=== PATIENT | male | born 1955 | race Caucasian/White ===

== ENCOUNTER 2016-12-05 12:27 | Day surgery (SDC) | payer OTHER ==
[~2016-12-05] VITALS: Ht 182.9 cm; Wt 131.5 kg
[~2016-12-05 12:27] MED LIST: ANDROGEL1.25 GM TD; ATIVAN1 MG PO; BUSPAR15 MG PO; CLARITIN-D 21 TABLET PO; CYMBALTA60 MG PO; DURAGESIC12 MCG TD; FLONASE ALLERG9.9 ML BOTH NARES; GLUCOTROL5 MG PO; LIPITOR40 MG PO; LO-DOSE ASPIRIN81 M1 PO; LOSARTAN-HCTZ1 EAC1 PO; LYRICA100 MG PO; METFORMIN HCL1000 M1 PO; MOBIC7.5 MG PO; PERCOCET 5/31 TABLET PO; PROTONIX40 MG PO; REMERON30 M2 PO; TRAZODONE HCL50 MG PO; VENTOLIN HFA18 GM IH; VERAPAMIL HCL240 MG PO; ZANAFLEX4 M1 PO; ZOLOFT20 MG/ML PO; ZOLOFT50 MG PO
[2016-12-05] MEDS ORDERED: FISH OIL 1,0001 EAC7 PO (12:57)
[2016-12-05 13:11] LABS: POINT-OF-CARE METER ID UU14174212
== END 2016-12-05 14:50 | disposition home or self-care (01) ==
LOC: PAIN 12:27 → SDC 13:15 → PAIN 13:15
PROVIDERS: Anesthesiology Pain Medicine
DX: M47.812 Spondylosis without myelopathy or radiculopathy, cervical region (principal); M54.2 Cervicalgia; G89.29 Other chronic pain; M48.02 Spinal stenosis, cervical region; M48.06 Spinal stenosis, lumbar region; M47.816 Spondylosis without myelopathy or radiculopathy, lumbar region; I10 Essential (primary) hypertension; E11.42 Type 2 diabetes mellitus with diabetic polyneuropathy; E11.3299 Type 2 diabetes mellitus with mild nonproliferative diabetic retinopathy without macular edema, unspecified eye; E78.1 Pure hyperglyceridemia; J45.909 Unspecified asthma, uncomplicated; I25.10 Atherosclerotic heart disease of native coronary artery without angina pectoris; F41.8 Other specified anxiety disorders; K21.0 Gastro-esophageal reflux disease with esophagitis; Z79.82 Long term (current) use of aspirin; Z79.84 Long term (current) use of oral hypoglycemic drugs; Z79.891 Long term (current) use of opiate analgesic
CPT/HCPCS: 82948; J1030; J2250; J3010; S0020

== ENCOUNTER 2016-12-12 12:02 | Day surgery (SDC) | payer OTHER ==
[~2016-12-12] VITALS: Ht 180.3 cm; Wt 132.9 kg
[~2016-12-12 12:02] MED LIST changes: +FISH OIL 1,0001 EAC7 PO
[2016-12-12 12:48] LABS: POINT-OF-CARE METER ID UU14174212
== END 2016-12-12 14:21 | disposition home or self-care (01) ==
LOC: PAIN 12:02 → SDC 12:30 → PAIN 14:21
PROVIDERS: Anesthesiology Pain Medicine
DX: M47.812 Spondylosis without myelopathy or radiculopathy, cervical region (principal); M54.2 Cervicalgia; G89.29 Other chronic pain; M48.02 Spinal stenosis, cervical region; M48.06 Spinal stenosis, lumbar region; M47.816 Spondylosis without myelopathy or radiculopathy, lumbar region; I25.10 Atherosclerotic heart disease of native coronary artery without angina pectoris; E11.3299 Type 2 diabetes mellitus with mild nonproliferative diabetic retinopathy without macular edema, unspecified eye; E11.40 Type 2 diabetes mellitus with diabetic neuropathy, unspecified; J45.909 Unspecified asthma, uncomplicated; I10 Essential (primary) hypertension; F41.8 Other specified anxiety disorders; E78.5 Hyperlipidemia, unspecified; E66.01 Morbid (severe) obesity due to excess calories; Z68.41 Body mass index [BMI] 40.0-44.9, adult; Z79.82 Long term (current) use of aspirin; Z79.84 Long term (current) use of oral hypoglycemic drugs; Z79.891 Long term (current) use of opiate analgesic
CPT/HCPCS: 82948; J1030; J2250; J3010; S0020

== ENCOUNTER 2017-04-24 03:31 | Emergency (ER) | payer BC ==
[~2017-04-24] VITALS: Ht 182.9 cm; Wt 129.7 kg
[2017-04-24 04:29] LABS: CHLORIDE 94 mEq/L (99-109); POTASSIUM 4.6 mEq/L (3.7-5.4); SODIUM 131 mEq/L (136-147)
[2017-04-24 04:31] LABS: GLUCOSE 333 mg/dL (70-99)
[2017-04-24 04:35] LABS: CREATININE 1.1 mg/dL (0.6-1.3); GFR ESTIMATE (CALCULATED) > 59 mL/min/ (58.99-99999)
[2017-04-24 04:36] LABS: UREA NITROGEN (BUN) 10 mg/dL (9-23)
[2017-04-24 04:42] LABS: HEMATOCRIT 39.3 % (38.0-50.0); HEMOGLOBIN 13.7 G/DL (12.5-16.6); MCH 31.9 PG (29.0-34.0); MCHC 34.9 G/DL (30.0-36.0); MCV 91.6 FL (86-99); RBC DIS.WIDTH-CV 12.2 % (11.8-14.6); RBC DIS.WIDTH-SD 40.9 % (39-53); RED BLOOD COUNT 4.29 M/uL (4.00-5.50); WHITE BLOOD COUNT 10.4 K/uL (4.1-10.2)
[2017-04-24 04:47] LABS: PLATELET COUNT 433 K/uL (156-360)
[2017-04-24] MEDS ORDERED: LEVAQUIN750 MG PO (06:57)
[2017-04-24] MEDS ORDERED: PREDNISONE50 MG PO (06:59)
[2017-04-24 07:13] VITALS: BP 129/97
== END 2017-04-24 07:14 | disposition home or self-care (01) ==
LOC: EME 03:31
DX: J18.9 Pneumonia, unspecified organism (principal); E11.65 Type 2 diabetes mellitus with hyperglycemia; R06.00 Dyspnea, unspecified; Z16.30 Resistance to unspecified antimicrobial drugs; Z79.84 Long term (current) use of oral hypoglycemic drugs; E78.5 Hyperlipidemia, unspecified; F41.9 Anxiety disorder, unspecified; G89.29 Other chronic pain
CPT/HCPCS: 71046; 71275; 80048; 85027; 85379; 93005; 94640; 99281; 99284; J7030; J7512

== ENCOUNTER 2017-05-25 09:34 | Day surgery (SDC) | payer BC ==
[~2017-05-25] VITALS: Ht 180.3 cm; Wt 127.0 kg
[~2017-05-25 09:34] MED LIST changes: -ANDROGEL1.25 GM TD; +ANDROGEL2.5 G1 TD; +DESYREL100 MG PO; +GLUCOPHAGE1000 MG PO; +LEVAQUIN750 MG PO; -METFORMIN HCL1000 M1 PO; +PREDNISONE50 MG PO; -TRAZODONE HCL50 MG PO
== END 2017-05-25 10:40 | disposition home or self-care (01) ==
LOC: PAIN 09:34
PROVIDERS: Anesthesiology Pain Medicine
DX: M47.812 Spondylosis without myelopathy or radiculopathy, cervical region (principal); M48.02 Spinal stenosis, cervical region; M47.816 Spondylosis without myelopathy or radiculopathy, lumbar region; M48.061 Spinal stenosis, lumbar region without neurogenic claudication; I10 Essential (primary) hypertension; E11.3299 Type 2 diabetes mellitus with mild nonproliferative diabetic retinopathy without macular edema, unspecified eye; E78.5 Hyperlipidemia, unspecified; J45.909 Unspecified asthma, uncomplicated; K21.9 Gastro-esophageal reflux disease without esophagitis; R00.0 Tachycardia, unspecified; Z79.84 Long term (current) use of oral hypoglycemic drugs; Z79.891 Long term (current) use of opiate analgesic
CPT/HCPCS: 82948; J1885; J2250; S0020

== ENCOUNTER 2017-09-07 10:20 | Day surgery (SDC) | payer BC ==
[~2017-09-07] VITALS: Ht 180.3 cm; Wt 127.0 kg
== END 2017-09-07 12:14 | disposition home or self-care (01) ==
LOC: PAIN 10:20
PROVIDERS: Anesthesiology Pain Medicine
DX: M47.812 Spondylosis without myelopathy or radiculopathy, cervical region (principal); M99.81 Other biomechanical lesions of cervical region; M47.816 Spondylosis without myelopathy or radiculopathy, lumbar region; J30.9 Allergic rhinitis, unspecified
CPT/HCPCS: 82948; J1030; J2250; S0020